=== PATIENT | male | born 1940 | race Caucasian/White ===

== ENCOUNTER 2025-08-20 14:59 | Outpatient (CLI) | payer MEDICARE, BC ==
--- NOTE | 2025-08-21 09:31 | RADIOLOGY REPORT ---
CLINICAL INDICATION: PAIN IN RIGHT KNEE,OTHER INSTABILITY, RIGHT KNEE TECHNIQUE: Multiplanar, multisequence MRI of the right knee was performed without contrast. Contrast: None. COMPARISON: None FINDINGS: Joint space and synovium: There is large knee joint effusion. 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 Bones and articular cartilage: There is no evidence of acute fracture or bone marrow edema. Alignment is maintained. There is a 5 x 5 mm in the tibial eminence consistent with a subchondral cyst. Patellar femoral articular cartilage is intact. There is full-thickness articular cartilage loss in the me dial femoral condyle and medial tibial plateau. Bone marrow edema is present in the medial tibial plateau. The lateral compartment articular cartilage is intact. Menisci: There is a complex tear in the body, anterior and posterior horn of the medial meniscus. There is an undersurface tear of the lateral meniscus at the junction of the body and posterior horn Tendons and ligaments: The tendons in the posterior knee are intact. The extensor mechanism is intact. The anterior cruciate ligament is intact. The posterior cruciate ligament is intact. There is a focus of susceptibility artifact deep to the medial collateral ligament which may related to previous surgery. There is thickening of the proximal medial collateral ligament compatible with sprain. The lateral collateral ligament stabilizing complex is intact. Muscles: Regional muscles are preserved in bulk and signal characteristics. Other: None. IMPRESSION: 1. Complex tear in the medial meniscus. 2. Undersurface tear in the lateral meniscus. 3. Full-thickness articular cartilage loss in the medial compartment with bone marrow edema in the medial tibial plateau. 4. Large knee joint effusion. 5. Gilbert's cyst. 6. MCL sprain.
== END 2025-08-20 23:59 | disposition home or self-care (01) ==
LOC: MRI 14:59
PROVIDERS: ATTEND Physician Assistant Surgical
DX: S83.231A Complex tear of medial meniscus, current injury, right knee, initial encounter (principal); M25.569 Pain in unspecified knee; M25.361 Other instability, right knee; R68.89 Other general symptoms and signs; R79.89 Other specified abnormal findings of blood chemistry; E78.00 Pure hypercholesterolemia, unspecified; M71.21 Synovial cyst of popliteal space [Baker], right knee; Z00.00 Encounter for general adult medical examination without abnormal findings; R94.6 Abnormal results of thyroid function studies; E55.9 Vitamin D deficiency, unspecified; X58.XXXA Exposure to other specified factors, initial encounter; Y93.89 Activity, other specified; Y92.89 Other specified places as the place of occurrence of the external cause; Y99.8 Other external cause status; M25.461 Effusion, right knee
CPT/HCPCS: 73721